=== PATIENT | male | born 1975 | race Caucasian/White ===

== ENCOUNTER 2018-08-08 08:52 | Emergency (ER) | payer MEDICARE, MEDICAID, SELFPAY ==
[2018-08-08 09:04] VITALS: BP 170/90; PULSE 106; RESP 20; TEMP 37.9; O2SAT 98
--- NOTE | 2018-08-08 09:51 | ED.FEVER ---
HPI - Fever General Chief Complaint: Fever Stated Complaint: Not eating since yesterday,shivering Time Seen by Provider: 08/08/18 09:13 Source: other (Caregivers) Mode of arrival: ambulatory Limitations: other (Patient is mentally disabled and nonverbal) History of Present Illness HPI Narrative: Patient is brought to the emergency department for decreased appetite, agitation, and low-grade fever that started this morning. Caregiver actually states that she noticed that last night, the patient seemed to be not eating quite as much, though he had been at a social function earlier in the day and eaten quite a bit. Caregiver states that normally, the patient will eat whatever is put before him, and has a voracious appetite. The patient normally drinks quite a bit of water also, and did not seem to be drinking as much last night, though he did drink 3 large glasses of water this morning. However, the caregiver states the patient was not interested in his breakfast this morning. Patient was also found to have a temperature of 100.4?. Caregiver states that patient has been like this when he has had a UTI in the past. He does wear a condom catheter during the day, but wears depends at night. He does not have an indwelling Florian catheter. The patient has a history of chronic right knee pain, which is also sometimes because of agitation, but the patient knows how to sign in indicate that this is what is hurting him, and caregiver state he has not been signing that his knee hurts. The patient has not been vomiting or having any diarrhea, and in fact, has been constipated for the last 3 days. He has had no rhinorrhea or cough. He has not indicated any chest or abdominal pain. no other complaints at this time. Related Data Home Medications Medication Instructions Recorded Confirmed CALCIUM CARBONATE/VITAMIN D3 600 mg PO QDAY #0 07/22/10 (Oyster Shell Calcium-Vit D Tab) MULTIVITAMIN/MINERALS (Thera M 1 tab PO QDAY #0 07/22/10 Plus Tablet) Vitamin E (Alpha-Tocopherol) 400 unit PO QDAY #0 07/22/10 lisinopril [Prinivil] 20 mg PO BID #0 04/28/12 Previous Rx's Medication Instructions Recorded carbamazepine 200 mg PO BID #60 tab 06/09/17 divalproex [Depakote ER] 0 PO QDAY #180 tab 06/09/17 sulfamethoxazole-trimethoprim 1 tab PO BID #14 tab 08/08/18 [Bactrim DS] Allergies Allergy/AdvReac Type Severity Reaction Status Date / Time amoxicillin [AMOXICILLIN] Allergy Unknown Verified 08/08/18 09:04 codeine [CODEINE] Allergy Unknown Verified 08/08/18 09:04 meperidine [From DEMEROL] Allergy Unknown Verified 08/08/18 09:04 VERSED Allergy Mild Uncoded 08/08/18 09:04 Review of Systems Review of Systems ROS Unobtainable: Other (Review of systems performed by caregivers.) Constitutional Denies chills, Reports fever(s), Denies lethargy and Denies weakness Comments: Agitation, decreased appetite Eyes Denies change in vision, Denies eye discharge, Denies irritation and Denies loss of vision ENT Ears, Nose, Mouth, and Throat: Denies change in voice, Denies neck pain and Denies sore throat Cardiovascular Denies chest pain, Denies irregular heart rhythm, Denies lightheadedness, Denies palpitations, Denies dyspnea, Denies dyspnea on exertion and Denies orthopnea Respiratory Denies cough, Denies dyspnea, Denies dyspnea on exertion and Denies wheezing Gastrointestinal Gastrointestinal: Denies abdominal pain, Denies change in bowel habits, Denies diarrhea, Denies nausea and Denies vomiting Genitourinary Denies hematuria, Denies flank pain, Denies urinary incontinence and Denies urinary urgency Musculoskeletal Denies neck pain Integumentary/Breasts Denies pruritus, Denies erythema, Denies rash and Denies wounds Neurologic Denies confusion, Denies loss of vision and Denies weakness Psychiatric Denies anxiety, Denies confusion, Denies depression, Denies homicidal ideation and Denies suicidal ideation Endocrine Denies palpitations Hematologic/Lymphatic Denies easy bruising Allergic/Immunologic Denies wheezing [facility] Medical History Developmental delay, profound (Acute) Social History Smoking Status: Never smoker Social History Smoking Status: Never smoker Exam Initial Vital Signs Initial Vital Signs: Vital Signs Temperature 100.2 F H 08/08/18 09:04 Pulse Rate 106 H 08/08/18 09:04 Respiratory Rate 20 08/08/18 09:04 Blood Pressure 170/90 H 08/08/18 09:04 Pulse Oximetry 98 08/08/18 09:04 Const General: cooperative and well developed Nutritional Appearance: well nourished Orientation: alert, awake and not confused [facility] Head: normocephalic and atraumatic Ears: external ears normal Nose: external nose normal and No nasal discharge Face and sinus: face symmetric and No dry mucous membranes Mouth: oral mucosae normal and moist mucous membranes Teeth and gingiva: dentition normal Eyes General: appearance normal, both eyes and all related structures Eyelids: eyelids normal Conjunctivae: conjunctivae normal Sclera: sclerae normal Pupils: PERRL EOM: EOM intact bilaterally Neck Neck: normal visual inspection, trachea midline, No lymphadenopathy, No midline deformity and No JVD Lymphatic: No lymphedema Chest Chest: normal inspection of the chest Resp Effort & Inspection: normal respiratory effort, able to speak in complete sentences, no respiratory distress and no use of accessory muscles Auscultation: clear to auscultation bilaterally, no rales, no rhonchi and no wheezes Cardio Rate: regular rate Rhythm: regular rhythm Heart Sounds: no click, no gallops, no murmurs and no rubs Pulses: normal peripheral pulses GI Inspection: non-distended Palpation: soft, no hepatosplenomegaly, No guarding, No pulsatile mass and No tender Back/Spine/Pelvis Back: No CVA tenderness Cervical Spine: cervical ROM normal and No pain with cervical ROM Thoracic/Lumbar Spine: thoracic and lumbar spine normal to inspection Skin General: no rashes or lesions noted, No jaundice and No petechiae Neuro General: alert, awake and no focal motor deficits Extrem General: full ROM, no clubbing, cyanosis or edema, no pedal edema and no calf tenderness Psych Appearance: disheveled Attitude: cooperative Thought Content: suicidality Course Course Narrative: Patient overall appeared fairly well, and did not display signs of severe illness. However, as he was nonverbal and unable to give any personal account of his symptoms, I did feel he should be worked up with urinalysis and influenza swab. Patient was given a dose of Tylenol in the emergency department, as well. urinalysis found to be positive for urinary tract infection and patient was treated for this. Patient did not tolerate influenza swabbing well, and nurse was unable to get the sample. Caregivers stated that they would like to decline this on the patient's behalf. The patient was stable in the emergency department with no signs of sepsis, and I felt he was stable for discharge home. We have discussed antibiotic treatment at home for the UTI, and the need for follow-up. We have also discussed the usual indications for return. Orders Ordered: Discontinued Medications Acetaminophen (Tylenol) 650 mg PO NOW ONE Stop: 08/08/18 09:58 Last Admin: 08/08/18 10:04 Dose: 650 mg Trimethoprim/Sulfamethoxazole (Bactrim Ds) 1 tab PO NOW ONE Stop: 08/08/18 11:37 Last Admin: 08/08/18 12:06 Dose: Not Given Vital Signs - 8 hr 08/08/18 09:04 Temperature 100.2 F H Pulse Rate 106 H Respiratory Rate 20 Blood Pressure 170/90 H Pulse Oximetry 98 MDM - Fever Medical Records Attestation: I reviewed the patient's medical records. Lab Data Attestation: I reviewed the patient's lab results. Lab Results 08/08/18 Range/Units 10:00 Urine Color Yellow Urine Appearance Clear Urine pH 6.5 (4.5-8.0) Ur Specific [place] 1.015 (1.000-1.035) Urine Protein Trace H (Negative) Urine Glucose (UA) Negative (Negative) g/dL Urine Ketones Negative (NEGATIVE) Urine Occult Blood 2+ H (Negative) Urine Nitrate Positive (Negative) Urine Bilirubin Negative (NEGATIVE) Urine Urobilinogen 0.2 (0.2) E.U./dL Ur Leukocyte Esterase 1+ H (NEGATIVE) Urine RBC 0-1/hpf (0-5/HPF) Urine WBC 5-10/hpf H (0-5/HPF) Ur Squamous Epith Cells 1-5 /hpf (0-5/HPF) Urine Bacteria Many (>30) H (None) Ur Culture Indicated? Specimen cultured Discharge Plan Departure Patient Disposition: Home Clinical Impression: Developmental delay, profound, Acute UTI Discharge Date/Time: 08/08/18 12:00 Interventions: ED Discharge Assessment Last Done: 08/08/18 12:07 Instructions: DI for Fever (Symptom) -- Adult Activity Restrictions/Additional Instructions: Mr. Osman his urine shows evidence of infection. This is most likely the cause of his symptoms today. Please give him the antibiotics as directed, until all antibiotics are gone. His symptoms seem to be worsening after few days of antibiotics, please have him medically re-evaluated. Prescriptions: New sulfamethoxazole-trimethoprim [Bactrim DS] 800-160 mg tablet 1 tab PO BID Qty: 14 RF: 0 No Action CALCIUM CARBONATE/VITAMIN D3 (Oyster Shell Calcium-Vit D Tab) 600 mg PO QDAY Qty: 0 RF: 0 MULTIVITAMIN/MINERALS (Thera M Plus Tablet) 1 tab PO QDAY Qty: 0 RF: 0 Vitamin E (Alpha-Tocopherol) 400 unit PO QDAY Qty: 0 RF: 0 lisinopril [Prinivil] 20 MG tablet 20 mg PO BID Qty: 0 RF: 0 carbamazepine 200 MG tablet 200 mg PO BID Qty: 60 RF: 12 divalproex [Depakote ER] 500 MG tablet extended release 24 hr PO QDAY Qty: 180 RF: 12 Referrals: Neo Montelongo DO [Primary Care Provider] -
--- NOTE | 2018-08-08 10:02 | PC.NURSE ---
Attempted to do flu swab - pt. refuses adamantly.
[2018-08-08] MEDS: ACETAMINOPHEN 325 MG TABLET 650 MG PO (10:04)
[2018-08-08 10:09] LABS: Appearance Urine UA CLEAR; Bilirubin Urine UA NEGATIVE (NEGATIVE); Color Urine UA YELLOW; Glucose Urine UA NEGATIVE (Negative); Ketones Urine UA NEGATIVE (NEGATIVE); Leukocyte Esterase Urine UA 1+ (NEGATIVE); Nitrite Urine UA POSITIVE (Negative); Occult Blood Urine UA 2+ (Negative); Protein Urine UA TRACE (Negative); Specific Gravity Urine UA 1.015 (1.000-1.035); Urobilinogen Urine UA 0.2 E.U./dL (0.2); pH Urine UA 6.5 (4.5-8.0)
[2018-08-08 10:36] LABS: Bacteria Urine Many (>30); Culture Indicated Urine Specimen Cultured; RBC Urine 0-1/HPF (0-5/HPF); Squamous Epithelial Cell Urine 1-5 /HPF (0-5/HPF); WBC Urine 5-10/HPF (0-5/HPF)
[2018-08-08 10:40] VITALS: BP 154/88; PULSE 94; RESP 16; TEMP 37.5; O2SAT 100
== END 2018-08-08 12:00 | disposition home or self-care (01) ==
PROVIDERS: Emergency Provider Emergency Medicine; PCP Family Medicine
DX: N39.0 Urinary tract infection, site not specified (principal)
CPT/HCPCS: 81001; 87077; 87086; 87186; 99282